=== PATIENT | female | born 1995 | race Caucasian/White ===

== ENCOUNTER 2017-01-02 22:37 | Emergency (ER) | payer OTHER ==
[2017-01-02] MEDS ORDERED: ACETAMINOPHEN 325 MG TABLET PO ONE (23:07)
[2017-01-02] MEDS ORDERED: ONDANSETRON 4 MG TAB.RAPDIS PO ONE (23:07)
--- NOTE | 2017-01-02 23:07 | ER Document Report ---
ED Medical Screen (RME) - General Stated Complaint: ABDOMINAL PAIN/VOMITING Time seen by provider: 23:03 Mode of Arrival: Ambulatory Information source: Patient Notes: 21-year-old female presents to ED for abdominal pain nausea and vomiting for the last 3 days. She states she's been diagnosed with gastroparesis and her pain is been going on and off for 3 years. Her primary doctor is Liss Loo in [place]. Last menstrual period 12/13/2016. I have informed the patient of the risk and benefits of Zofran she states she does not think she is and she would like to Zofran for her nausea. I have greeted and performed a rapid initial assessment of this patient. A comprehensive ED assessment and evaluation of the patient, analysis of test results and completion of medical decision making process will be conducted by an additional ED providers. TRAVEL OUTSIDE OF THE [place] IN LAST 30 DAYS: No - Related Data Allergies/Adverse Reactions: cefdinir [From [employer]] Allergy (Verified 08/28/16 14:03) Past Medical History GI Medical History: Reports: Hx Gastroesophageal Reflux Disease - Immunizations Hx Diphtheria, Pertussis, Tetanus Vaccination: Yes Physical Exam - Vital signs Vitals: Temp Pulse Resp BP Pulse Ox 98.0 F 106 H 18 131/87 H 99 01/02/17 22:43 01/02/17 22:43 01/02/17 22:43 01/02/17 22:43 01/02/17 22:43 Course - Vital Signs Vital signs: Temp Pulse Resp BP Pulse Ox 98.0 F 106 H 18 131/87 H 99 01/02/17 22:43 01/02/17 22:43 01/02/17 22:43 01/02/17 22:43 01/02/17 22:43
[2017-01-02 23:54] LABS: ABSOLUTE BASOPHILS # (AUTO) 0.1 10^3/uL (0.0-0.2); ABSOLUTE LYMPHOCYTES (AUTO) 2.1 10^3/uL (0.5-4.7); ABSOLUTE MONOCYTES (AUTO) 0.5 10^3/uL (0.1-1.4); ABSOLUTE NEUT (AUTO) 13.8 10^3/uL (1.7-8.2); BASOPHILS % (AUTO) 0.4 % (0-2); EOSINOPHILS % (AUTO) 0.1 % (0-6); HEMATOCRIT 45.2 % (36.0-47.0); HEMOGLOBIN 15.2 g/dL (12.0-15.5); HGB HCT DIFFERENCE 0.4; LYMPHOCYTES % (AUTO) 12.8 % (13-45); MEAN CORPUSCULAR HEMOGLOBIN 29.9 pg (27.0-33.4); MEAN CORPUSCULAR HGB CONC 33.5 g/dL (32.0-36.0); MEAN CORPUSCULAR VOLUME 89 fl (80-97); MONOCYTES % (AUTO) 3.2 % (3-13); RED BLOOD COUNT 5.07 10^6/uL (3.72-5.28); RED CELL DISTRIBUTION WIDTH 13.3 % (11.5-14.0); SEGMENTED NEUTROPHILS % (AUTO) 83.5 % (42-78); WHITE BLOOD COUNT 16.5 10^3/uL (4.0-10.5)
[2017-01-03 00:08] LABS: AMORPHOUS SEDIMENT,URINE TRACE /HPF; APPEARANCE,URINE CLOUDY; BILIRUBIN,URINE NEGATIVE (NEGATIVE); GLUCOSE, URINE NEGATIVE (NEGATIVE); KETONES,URINE NEGATIVE (NEGATIVE); LEUKOCYTE ESTERASE,URINE NEGATIVE (NEGATIVE); NITRITE,URINE NEGATIVE (NEGATIVE); PROTEIN,URINE NEGATIVE (NEGATIVE); URINE SPECIFIC GRAVITY 1.015; UROBILINOGEN,URINE NEGATIVE mg/dL (<2.0)
[2017-01-03 00:11] LABS: ALANINE AMINOTRANSFERASE 25 U/L (9-52); ALBUMIN 5.9 g/dL (3.5-5.0); ALKALINE PHOSPHATASE 101 U/L (38-126); ANION GAP 18 (5-19); ASPARTATE AMINO TRANSFERASE 28 U/L (14-36); BLOOD UREA NITROGEN 8 mg/dL (7-20); CALCIUM 11.5 mg/dL (8.4-10.2); CARBON DIOXIDE 24 mmol/L (22-30); CHLORIDE 96 mmol/L (98-107); CREATININE RESULT 0.54 mg/dL (0.52-1.25); GLUCOSE 110 mg/dL (75-110); POTASSIUM 4.7 mmol/L (3.6-5.0); SODIUM 137.5 mmol/L (137-145); TOTAL PROTEIN 9.4 g/dL (6.3-8.2)
[2017-01-03 07:36] VITALS: BP 110/86
[2017-01-03] MEDS ORDERED: DICYCLOMINE HCL 20 MG TABLET PO ONE (07:59)
[2017-01-03] MEDS ORDERED: FAMOTIDINE 20 MG TABLET PO ONE (08:00)
--- NOTE | 2017-01-03 08:04 | ER Document Report ---
ED General - General Chief Complaint: Abdominal Pain Stated Complaint: ABDOMINAL PAIN/VOMITING Mode of Arrival: Ambulatory TRAVEL OUTSIDE OF THE [place] IN LAST 30 DAYS: No - HPI Patient complains to provider of: epigastric left upper quadrant pain Notes: Patient coming in for evaluation of epigastric left upper quadrant pain with nausea vomiting. According to the nurse's notes patient has a history of gastroparesis. Upon my evaluation patient is resting comfortably. Patient is now been the ER for approximately 7 hours. Patient's vital signs have been stable. Patient continues to complain of pain. States she's been admitted for this in the past. Patient looks nontoxic well-hydrated - Related Data Allergies/Adverse Reactions: cefdinir [From [employer]] Allergy (Verified 01/03/17 07:59) Past Medical History - General Information source: Patient - Social History Smoking Status: Never Smoker Drug Abuse: None Family History: Reviewed & Not Pertinent Patient has suicidal ideation: No Patient has homicidal ideation: No Renal/ Medical History: Denies: Hx Peritoneal Dialysis GI Medical History: Reports: Hx Gastroesophageal Reflux Disease - Immunizations Hx Diphtheria, Pertussis, Tetanus Vaccination: Yes Review of Systems - Review of Systems Constitutional: No symptoms reported EENT: No symptoms reported Cardiovascular: No symptoms reported Respiratory: No symptoms reported Gastrointestinal: Abdominal pain Genitourinary: No symptoms reported Female Genitourinary: No symptoms reported Musculoskeletal: No symptoms reported Skin: No symptoms reported Hematologic/Lymphatic: No symptoms reported Neurological/Psychological: No symptoms reported -: Yes All other systems reviewed and negative Physical Exam - Vital signs Vitals: Temp Pulse Resp BP Pulse Ox 98.0 F 106 H 18 131/87 H 99 01/02/17 22:43 01/02/17 22:43 01/02/17 22:43 01/02/17 22:43 01/02/17 22:43 Interpretation: Normal - General General appearance: Appears well, Alert - HEENT Head: Normocephalic, Atraumatic Eyes: Normal Pupils: PERRL - Respiratory Respiratory status: No respiratory distress Chest status: Nontender Breath sounds: Normal Chest palpation: Normal - Cardiovascular Rhythm: Regular Heart sounds: Normal auscultation Murmur: No - Abdominal Inspection: Normal Distension: No distension Bowel sounds: Normal Tenderness: Tender - Left upper quadrant tenderness epigastric tenderness mild. No: McBurney's point, Edmond's sign, Guarding, Rebound Organomegaly: No organomegaly - Back Back: Normal, Nontender - Extremities General upper extremity: Normal inspection, Nontender, Normal color, Normal ROM , Normal temperature General lower extremity: Normal inspection, Nontender, Normal color, Normal ROM , Normal temperature, Normal weight bearing. No: Landon's sign - Neurological Neuro grossly intact: Yes Cognition: Normal Orientation: AAOx4 [place] Coma Scale Eye Opening: Spontaneous [place] Coma Scale Verbal: Oriented [place] Coma Scale Motor: Obeys Commands [place] Coma Scale Total: 15 Speech: Normal Motor strength normal: LUE, RUE, LLE, RLE Sensory: Normal - Psychological Associated symptoms: Normal affect, Normal mood - Skin Skin Temperature: Warm Skin Moisture: Dry Skin Color: Normal Course - Re-evaluation Re-evalutation: 01/03/17 13:40 Patient with a history of gastroparesis. Examination today reveals no surgical pathology. His mild leukocytosis more likely from either viral call us or the patient throwing up. Patient looks nontoxic feel the patient would be able to be safely discharged home will prescribe medications to help settle her stomach nausea medications. Patient discharged - Vital Signs Vital signs: Temp Pulse Resp BP Pulse Ox 97.6 F 98 18 110/86 H 96 01/03/17 06:00 01/03/17 06:00 01/03/17 06:00 01/03/17 06:00 01/03/17 06:00 - Laboratory Result Diagrams: 01/02/17 23:30 01/02/17 23:30 Laboratory results interpreted by me: 01/02/17 01/02/17 01/02/17 23:30 23:30 23:30 WBC 16.5 H Plt Count 494 H Seg Neutrophils % 83.5 H Lymphocytes % 12.8 L Absolute Neutrophils 13.8 H Chloride 96 L Calcium 11.5 H Total Protein 9.4 H Albumin 5.9 H Urine Ascorbic Acid 40 H Discharge - Discharge Clinical Impression: Abdominal pain Qualifiers: Abdominal location: unspecified location Qualified Code(s): R10.9 - Unspecified abdominal pain Nausea and vomiting Qualifiers: Vomiting type: unspecified Vomiting Intractability: unspecified Qualified Code( s): R11.2 - Nausea with vomiting, unspecified Condition: Good Disposition: HOME, SELF-CARE Instructions: Abdominal Pain ([facility]), Gastroenterology, Gastroenteritis (adult) ( [facility]), Clear Liquid Diet ([facility]) Additional Instructions: Your laboratory today shows no critical pathology. I would highly recommend that you follow-up with your primary care physician Cor[place] and also be referred to a marine water tender. We will treat her symptoms with a medication called Reglan and Bentyl. This will help out with her pain and your nausea and vomiting. Return to the ER symptoms worsen. Please follow clear liquid diet for the next 24 hours. Prescriptions: Dicyclomine HCl [Bentyl 20 mg Tablet] 20 mg PO QID #40 tablet Famotidine [Pepcid 20 mg Tablet] 20 mg PO BID #30 tablet Metoclopramide HCl [Reglan] 5 mg PO Q6 #20 tablet
== END 2017-01-03 08:22 | disposition home or self-care (01) ==
LOC: ER 22:37
DX: R10.9 Unspecified abdominal pain (principal); R11.2 Nausea with vomiting, unspecified; R10.13 Epigastric pain
CPT/HCPCS: 99284; 36415; 84703; 85025; 80053; 81001; J3490; S0119